=== PATIENT | male | born 1955 | race Caucasian/White ===

== ENCOUNTER 2016-04-21 18:39 | Emergency (ER) | payer SELFPAY ==
[~2016-04-21] VITALS: Ht 182.8 cm; Wt 81.6 kg
[~2016-04-21 18:39] MED LIST: ACTOS45 MG PO; ASPIRIN CHEWABL81 MG PO; ASPIRIN CHILDRE81 MG PO; BACTRIM DS 8001 TA1 PO; COUMADIN5 M2 PO; COUMADIN6 M2 PO; CYMBALTA30 MG PO; DURAGESIC 50 M50 MCG TD; ELIQUIS5 M1 PO; FENTANYL TR25 MCG/HR TD; FENTANYL50 MCG/HR TD; FERRO SEQUEL; FLOMAX0.4 MG PO; HUMALOG100 U/ML SC; HUMULIN N100 U/ML SC; INSULIN-HUMA100 U/ML SC; IRON325 M1 PO; LANTUS100 U/ML SC; LEVAQUIN750 M1 PO; LISINOPRIL10 MG PO; LISINOPRIL20 MG PO; LOPRESSOR25 MG PO; LOPRESSOR50 MG PO; MAXIPIME1 GM IV; METHADOSE40 MG PO; METOPROLOL SUCC25 M2 PO; NEURONTIN100 MG PO; NEURONTIN600 MG PO; NEURONTIN800 MG PO; OXYCODONE HCL10 M1 PO; OXYCODONE HCL30 MG PO; OXYCODONE HCL5 MG PO; PAXIL20 M1 PO; PERCOCET 325 MG1 TA2 PO; PERCOCET 325 MG1 TA7 PO; PLAVIX75 MG PO; PRAVACHOL40 MG PO; PRENATAL1 TA3 PO; PRILOSEC20 MG PO; PROSCAR5 M1 PO; ROBAXIN750 MG PO; SIMVASTATIN10 MG PO; TEMAZEPAM15 M1 PO; TRAMADOL HCL50 MG PO; VANCOMYCIN IV; VOLTAREN50 M1 PO; ZETIA10 MG PO; ZOFRAN ODT4 MG SL; ZOFRAN4 MG PO; [UNRECOGNIZED DRUG - OTHER] PO
[2016-04-21 19:28] LABS: BASO # 0.1 10*3/uL (0.0-0.1); BASO % 0.8 % (0.0-1.0); EOS # 0.4 10*3/uL (0.0-0.4); EOS % 6.4 % (1.0-4.0); HEMATOCRIT 27.7 % (42.0-52.0); HEMOGLOBIN 8.8 g/dl (14.0-18.0); LYMPH # 1.9 10*3/uL (1.3-4.4); LYMPH % 29.1 % (27.0-41.0); MEAN CELL VOLUME 91.7 fl (80.0-94.0); MEAN CORPUSCULAR HGB 29.1 pg (27.0-31.0); MEAN CORPUSCULAR HGB CONC 31.8 g/dl (33.0-37.0); MEAN PLATELET VOLUME 9.4 fl (9.6-12.3); MONO # 0.6 10*3/uL (0.1-1.0); MONO % 8.4 % (3.0-9.0); NEUT # 3.6 10*3/uL (2.3-7.9); NEUT % 54.7 % (47.0-73.0); PLATELET COUNT AUTOMATED 225 10*3/uL (130-400); RED BLOOD COUNT 3.02 10*6/uL (4.50-5.90); WHITE BLOOD COUNT 6.5 10*3/uL (4.8-10.8)
[2016-04-21 19:46] LABS: ALBUMIN 3.7 gm/dl (3.1-4.5); ALKALINE PHOSPHATASE 106 U/L (45-117); BILIRUBIN, TOTAL 0.5 mg/dl (0.2-1.0); BUN 28 mg/dl (7-24); CARBON DIOXIDE 25 mmol/L (21-32); CHLORIDE 106 mmol/L (98-107); EST GLOM FILT AFRICAN AMERICAN 34 ml/min; GLUCOSE 98 mg/dL (65-99); POTASSIUM 4.7 mmol/L (3.5-5.1); SGOT/AST 18 IU/L (3-35); SGPT/ALT 19 U/L (12-78); SODIUM 142 mmol/L (136-145); TOTAL PROTEIN 7.9 gm/dL (6.4-8.2); TROPONIN I 0.027 ng/ml (<0.5)
[2016-04-21 20:45] LABS: BILIRUBIN NEGATIVE (NEGATIVE); BLOOD 1+ (NEGATIVE); CLARITY SL CLOUDY (CLEAR); COLOR YELLOW (YELLOW); GLUCOSE NEGATIVE (NEGATIVE); KETONE NEGATIVE (NEGATIVE); LEUKO ESTERASE NEGATIVE (NEGATIVE); NITRITE NEGATIVE (NEGATIVE); PH 5.5 (5.0-9.0); PROTEIN NEGATIVE (NEGATIVE); SPECIFIC GRAVITY <= 1.005 (1.005-1.030); UROBILINOGEN 0.2 E.U./dl (0.2-1.0)
[2016-04-21 20:52] LABS: URINE AMPHETAMINES < 1000 (1000ng/ml); URINE BARBITURATES < 200 (200ng/ml); URINE COCAINE < 300 (300ng/ml)
[2016-04-21 20:55] LABS: BACTERIA 1+; EPITHELIAL CELLS 0-2; URINE REFLEX COMMENT YES (NO); WBC 0-2 wbc/hpf (0-5)
[2016-05-25] MEDS ORDERED: CYMBALTA60 MG PO (05:08)
[2016-05-25] MEDS ORDERED: LEVEMIR FLEX100 U/ML SC (05:10)
[2016-05-26] MEDS ORDERED: METOPROLOL SUCC25 M2 PO (12:29)
[2016-05-26] MEDS ORDERED: LOPRESSOR25 MG PO (12:35)
[2016-05-27] MEDS ORDERED: METOPROLOL TART50 M1 PO (10:58)
[2016-05-27] MEDS ORDERED: BACTROBAN OINT0.9 GM T (10:58)
[2016-05-27] MEDS ORDERED: LEVEMIR FLEX100 U/ML SC (10:58)
== END 2016-04-21 21:37 | disposition home or self-care (01) ==
LOC: ED 18:39
PROVIDERS: Student in an Organized Health Care Education/Training Program
DX: T50.901A Poisoning by unspecified drugs, medicaments and biological substances, accidental (unintentional), initial encounter (principal); E11.9 Type 2 diabetes mellitus without complications; I25.10 Atherosclerotic heart disease of native coronary artery without angina pectoris; I21.4 Non-ST elevation (NSTEMI) myocardial infarction; Z95.1 Presence of aortocoronary bypass graft; Z79.4 Long term (current) use of insulin; Z79.82 Long term (current) use of aspirin; Z88.6 Allergy status to analgesic agent; Z88.8 Allergy status to other drugs, medicaments and biological substances